=== PATIENT | male | born 1960 | race Caucasian/White ===

== ENCOUNTER → 2017-08-06 | Outpatient (CLI) | payer OTHER | LOC: ULTRA 09:26 | DX: R10.9 Unspecified abdominal pain (principal) ==

== ENCOUNTER → 2017-09-14 | Outpatient (CLI) | payer OTHER | LOC: NUC 09:35 | DX: K82.9 Disease of gallbladder, unspecified (principal) ==

== ENCOUNTER → 2018-02-14 | Outpatient (CLI) | payer OTHER | LOC: MRI 06:40 | DX: K76.0 Fatty (change of) liver, not elsewhere classified (principal); M48.07 Spinal stenosis, lumbosacral region ==

== ENCOUNTER → 2020-12-11 | Outpatient (CLI) | payer OTHER | LOC: RAD 09:43 | PROVIDERS: ATTEND Family Medicine | DX: K76.0 Fatty (change of) liver, not elsewhere classified (principal) ==

== ENCOUNTER 2021-09-01 15:55 | Emergency (ER) | payer OTHER ==
[~2021-09-01] VITALS: Ht 182.9 cm; Wt 106.6 kg
[2021-09-01 18:11] LABS: URINE BILIRUBIN NEGATIVE (Negative); URINE BLOOD NEGATIVE (Negative); URINE CLARITY CLEAR; URINE COLOR YELLOW; URINE GLUCOSE-RANDOM* NEGATIVE (Negative); URINE KETONES NEGATIVE (Negative); URINE LEUKOCYTES-REFLEX NEGATIVE (Negative); URINE NITRITE-REFLEX NEGATIVE (Negative); URINE PROTEIN (DIPSTICK) NEGATIVE (Negative); URINE SPECIFIC GRAVITY >= 1.030 (1.005-1.035); URINE UROBILINOGEN 0.2 E.U./dl (0.2-1.0)
[2021-09-01 18:30] LABS: ABSOLUTE NEUTROPHILS 9.7 thou/uL (1.4-8.2); BASOPHILS 0.3 % (0.0-2.0); EOSINOPHILS 0.7 % (0.0-3.0); HEMATOCRIT 44.3 % (42.0-52.0); HEMOGLOBIN 14.7 gm/dL (14.0-18.0); LYMPHOCYTES 13.6 % (24.0-44.0); MCH 30.2 pg (26.0-34.0); MCHC 33.1 g/dL (28.0-37.0); MCV 91.2 fL (80.0-100.0); MONOCYTES 6.3 % (1.0-8.0); PLATELET COUNT 170 thou/uL (150-400); POLYS 79.1 % (36.0-66.0); RBC 4.86 mil/uL (4.50-6.00); RDW 13.2 % (10.5-14.5); WBC 12.2 thou/uL (4.0-11.0)
[2021-09-01 18:39] LABS: CALCIUM 9.3 mg/dL (8.5-10.1); CREATININE 0.9 mg/dL (0.7-1.3); POTASSIUM 3.9 mmol/L (3.5-5.1)
[2021-09-01 18:45] LABS: ALBUMIN 4.3 g/dL (3.4-5.0); TOTAL BILIRUBIN 0.5 mg/dL (0.2-1.0); TOTAL PROTEIN 7.5 g/dL (6.4-8.2)
[2021-09-01 18:47] LABS: LIPASE 159 U/L (73-393)
[2021-09-01] MEDS ORDERED: ZOFRAN ODT4 MG PO (20:05)
[2021-09-01 22:04] VITALS: BP 134/82
--- NOTE | 2021-09-02 08:17 | EKG ---
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: : 1960 Requested By: Kassy Rashid Order Number: [id number] MD: Mina Braxton Measurements Intervals [place] Rate: 65 P: 28 AR: 187 QRS: -23 QRSD: 106 T: 23 QT: 407 QTc: 424 Interpretive Statements Sinus rhythm RSR' in V1 or V2, probably normal variant Compared to ECG 04/01/2008 20:57:44 No significant change was found Electronically Signed On 09-02-2021 8:16:56 CRIMINALIST by Mina Braxton [email or web address] <ELECTRONICALLY SIGNED> By: Mina Braxton MD, [facility] 09/02/21 0816 [id number] [id number] Mina Braxton MD, FACC /EPI
--- NOTE | 2021-09-02 12:25 | EKG ---
[facility] [place] [address] ELECTROCARDIOGRAM REPORT Name: ARUN BROWNING [id number] Admission: 09/01/21 Attend Phys: Discharge: 09/01/21 Date of : 56 Report #: [id number] [facility] ED Test Date: 2021-09-01 Test Time: 19:57:07 Pat Name: ARUN BROWNING Department: Room: Gender: M Distance Education Coordinator: KIMO DAVILA : 1960 Requested By: Kassy Rashid Order Number: [id number] MD: Misbah Canada Measurements Intervals [place] Rate: 66 P: 21 KS: 198 QRS: -29 QRSD: 110 T: -2 QT: 413 QTc: 433 Interpretive Statements Sinus rhythm Borderline left axis deviation RSR' in V1 or V2, probably normal variant Compared to ECG 09/01/2021 18:39:38 No significant changes Electronically Signed On 09-02-2021 12:25:01 [employer] SUPERVIS[employer] by Misbah Canada [email or web address] <ELECTRONICALLY SIGNED> By: Misbah Canada MD, [facility] 09/02/21 1225 1957 56 Misbah Canada MD, FACC /EPI
== END 2021-09-01 22:05 | disposition home or self-care (01) ==
LOC: ER 15:55
PROVIDERS: Emergency Medicine
DX: R10.13 Epigastric pain (principal); R19.7 Diarrhea, unspecified; R11.2 Nausea with vomiting, unspecified; I10 Essential (primary) hypertension; E11.9 Type 2 diabetes mellitus without complications

== ENCOUNTER → 2021-10-14 | Outpatient (CLI) | payer OTHER ==
[~2021-10-14] MED LIST: ZOFRAN ODT4 MG PO
== END ==
LOC: NUC 07:47
PROVIDERS: ATTEND Family Medicine
DX: K82.9 Disease of gallbladder, unspecified (principal); R10.9 Unspecified abdominal pain